=== PATIENT | male | born 1955 | race Caucasian/White ===

== ENCOUNTER 2018-01-14 01:35 | Emergency (ER) | payer SELFPAY ==
--- NOTE | 2018-01-14 01:58 | ER Document Report ---
ED General - General Stated Complaint: POSSIBLE OVERDOSE Time Seen by Provider: 01/14/18 01:40 Notes: Patient is a 62-year-old male presents with complaint of intentional overdose try to kill himself. He said he took approximately 15 tablets of Ambien. He also may be took some Adderall. He also has a bottle of clonazepam and is unclear if he took any of those. He says that he has not. He has been doing with depression for a long time and so they get sick for want to kill himself. He also has been drinking alcohol tonight. Denies any chest pain. He denies any shortness of breath. Patient is somnolent but will answer questions. He has no other complaints at this time. He denies vomiting since the overdose. Past Medical History - Social History Smoking Status: Never Smoker Frequency of alcohol use: None Drug Abuse: None Family History: Reviewed & Not Pertinent Review of Systems - Review of Systems Notes: My Normal Review Basic REVIEW OF SYSTEMS: CONSTITUTIONAL : Denies fever, chills, or sweats. Denies recent illness. CARDIOVASCULAR: Denies chest pain. RESPIRATORY: Denies cough, cold, or chest congestion. Denies shortness of breath, difficulty breathing, or wheezing. GASTROINTESTINAL: Denies abdominal pain. Denies nausea, vomiting, or diarrhea. GENITOURINARY: Denies difficulty urinating, painful urination, burning, frequency, or blood in urine. MUSCULOSKELETAL: Denies neck or back pain or joint pain or swelling. SKIN: Denies rash or skin lesions. NEUROLOGICAL: Somnolent and foggy headed. Denies headache. Denies weakness or paralysis or loss of use of either side. Denies problems with gait or speech. Denies sensory or motor loss. Yoan: Depression and thoughts of suicide. ALL OTHER SYSTEMS REVIEWED AND NEGATIVE. Physical Exam - Vital signs Vitals: Pulse Ox 95 01/14/18 01:43 - Notes Notes: General Appearance: Well nourished, somnolent, cooperative, no acute distress, no obvious discomfort. Vitals: reviewed, See vital signs table. Head: no swelling or tenderness to the head Eyes: PERRL, EOMI, Conjuctiva clear Mouth: No decreasd moisture Throat: No tonsillar inflammation, No airway obstruction, No lymphadenopathy Neck: Supple, no neck tenderness Lungs: No wheezing, No rales, No rhonci, No accessory muscle use, good air exchange bilaterally. Heart: Normal rate, Regular rythm, No murmur, no rub Abdomen: Normal BS, soft, No rigidity, No abdominal tenderness, No guarding, no rebound, no abdominal masses, no organomegaly Extremities: strength 5/5 in all extremities, good pulses in all extremities, no swelling or tenderness in the extremities, no edema. Skin: warm, dry, appropriate color, no rash Neuro: speech is slow, oriented x 3, somnolent, responds appropriately to questions. Renal nerves II through XII are intact. Distal sensation intact. Patient moves all extremities without difficulty. Course - Re-evaluation Re-evalutation: 01/14/18 06:15 Patient is still arousable. Oxygen saturation is 94% on room air. Blood pressure has remained systolically in the 90s with a mean arterial pressure now of 74. He has not required any fluids or supple oxygen. Even though he is arousable he still more somnolent than when I suspect he has his baseline. Once he is no longer somewhat he will be medically stable for psychiatric evaluation. Patient is on IVC papers. Dictation of this chart was performed using voice recognition software; therefore, there may be some unintended grammatical errors. - Vital Signs Vital signs: Temp Pulse Resp BP Pulse Ox 98.0 F 16 96/62 L 93 01/14/18 05:00 01/14/18 06:01 01/14/18 06:01 01/14/18 06:01 - Laboratory Result Diagrams: 01/14/18 02:41 01/14/18 02:41 Laboratory results interpreted by me: 01/14/18 01/14/18 02:41 02:41 RBC 4.21 L Eosinophils % 8.2 H Absolute Eosinophils 0.7 H Sodium 132.7 L Glucose 71 L AST 68 H Salicylates < 1.0 L Acetaminophen < 10 L - EKG Interpretation by Me Additional EKG results interpreted by me: 01/14/18 01:57 EKG is reviewed and interpreted by me. EKG shows sinus rhythm with rate of [address] segment elevation or depression. No ischemic T-wave inversions. DE interval, QRS duration, QTc intervals are within normal range.
[2018-01-14 02:33] LABS: APPEARANCE,URINE CLEAR; BILIRUBIN,URINE NEGATIVE (NEGATIVE); COLOR,URINE STRAW; GLUCOSE, URINE NEGATIVE (NEGATIVE); KETONES,URINE NEGATIVE (NEGATIVE); LEUKOCYTE ESTERASE,URINE NEGATIVE (NEGATIVE); NITRITE,URINE NEGATIVE (NEGATIVE); PROTEIN,URINE NEGATIVE (NEGATIVE); URINE SPECIFIC GRAVITY 1.002; UROBILINOGEN,URINE NEGATIVE mg/dL (<2.0)
[2018-01-14 02:48] LABS: URINE AMPHETAMINES SCREEN UNCONFIRMED POSITIVE; URINE BARBITURATES SCREEN NEGATIVE; URINE BENZODIAZEPINES SCREEN NEGATIVE; URINE COCAINE SCREEN NEGATIVE; URINE MARIJUANA (THC) SCREEN UNCONFIRMED POSITIVE; URINE METHADONE SCREEN NEGATIVE; URINE PHENCYCLIDINE SCREEN NEGATIVE
[2018-01-14 02:52] LABS: ABSOLUTE BASOPHILS # (AUTO) 0.1 10^3/uL (0.0-0.2); ABSOLUTE EOSINOPHILS # (AUTO) 0.7 10^3/uL (0.0-0.6); ABSOLUTE LYMPHOCYTES (AUTO) 2.4 10^3/uL (0.5-4.7); ABSOLUTE MONOCYTES (AUTO) 0.8 10^3/uL (0.1-1.4); ABSOLUTE NEUT (AUTO) 4.3 10^3/uL (1.7-8.2); BASOPHILS % (AUTO) 0.8 % (0-2); EOSINOPHILS % (AUTO) 8.2 % (0-6); HEMATOCRIT 39.7 % (37.9-51.0); HEMOGLOBIN 13.8 g/dL (13.5-17.0); LYMPHOCYTES % (AUTO) 29.4 % (13-45); MEAN CORPUSCULAR HEMOGLOBIN 32.7 pg (27.0-33.4); MEAN CORPUSCULAR HGB CONC 34.8 g/dL (32.0-36.0); MEAN CORPUSCULAR VOLUME 94 fl (80-97); MONOCYTES % (AUTO) 10.1 % (3-13); PLATELET COUNT 167 10^3/uL (150-450); RED BLOOD COUNT 4.21 10^6/uL (4.35-5.55); RED CELL DISTRIBUTION WIDTH 13.8 % (11.5-14.0); SEGMENTED NEUTROPHILS % (AUTO) 51.5 % (42-78); TOTAL CELLS COUNTED % (AUTO) 100 %; WHITE BLOOD COUNT 8.3 10^3/uL (4.0-10.5)
[2018-01-14 03:35] LABS: ALANINE AMINOTRANSFERASE 53 U/L (21-72); ALBUMIN 3.7 g/dL (3.5-5.0); ALCOHOL 120 mg/dL (NONE DETECTED); ALKALINE PHOSPHATASE 91 U/L (38-126); ANION GAP 11 (5-19); ASPARTATE AMINO TRANSFERASE 68 U/L (17-59); BILIRUBIN,DIRECT 0.4 mg/dL (0.0-0.4); BILIRUBIN,TOTAL 0.4 mg/dL (0.2-1.3); BLOOD UREA NITROGEN 12 mg/dL (7-20); CALCIUM 8.5 mg/dL (8.4-10.2); CARBON DIOXIDE 24 mmol/L (22-30); CHLORIDE 98 mmol/L (98-107); GLUCOSE 71 mg/dL (75-110); POTASSIUM 4.4 mmol/L (3.6-5.0); SODIUM 132.7 mmol/L (137-145); TOTAL PROTEIN 6.5 g/dL (6.3-8.2)
[2018-01-14 03:38] LABS: ACETAMINOPHEN < 10 ug/mL (10-30); SALICYLATE < 1.0 mg/dL (2.0-20.0)
--- NOTE | 2018-01-14 09:26 | ER Document Report ---
Doctor's Note Notes: 01/14/18 09:24 Medical rounds: Chart reviewed and patient interviewed briefly. Vital signs are satisfactory, however, blood pressure is borderline low. Patient states he has a history of hypertension and takes lisinopril and metoprolol routinely. He has not been medicated for blood pressure since he arrived in the emergency department, he may possibly have taken some of his blood pressure medicines in addition to the other medications he admits overdosing on. His blood pressure, although that low, is adequate and stable at this time. Laboratory values are satisfactory. Patient denies any somatic complaints. He is alert, oriented, and cooperative. He is medically stable pending psychiatric evaluation and disposition.
--- NOTE | 2018-01-14 10:36 | PSYCHOLOGICAL NOTE ---
Psych Note - Psych Note Psych Note: Reason for Consult: intentional overdose Consent permissions: Mitali, daughter, and Lola, friend, pt presents to ed with c/o possible overdose. per EMS pt took about 5-10 ambian and maybe some adderall, clonazapam but not sure how many. pt has history of SI. pt is depressed since his committed suicide a few years ago. Clinician spoke with patient who disclosed that he arrived to [facility] via EMS because of "sleeping pills." When asked why the patient took so many sleeping pills he stated "because I felt like it." Patient disclosed that he "sometimes " feels like harming himself; he denies any previous suicide attempts. Patient was unable to recall specific details from the previous evening stating that he does not know who called EMS what his trigger was. He confirms he lives alone. Patient has an outpatient mental health provider with Dr. Butcher at [facility] denies any previous inpatient treatment and goes to [facility] for his medications. Patient's daughter disclosed that the patient has been having a very difficult time for the last 5 years. She reports that approximately 5 years ago her mom first attempted suicide and that he "was walking on egg shells after that." She disclosed that 2 years ago (February) her mother successfully committed suicide by using a gun. She reports the patient has a difficult time with therapy stating that he feels they do not understand what is going through. He has attempted both individual and group sessions. She does know that he takes multiple medications but is unsure the exact ones he takes. She disclosed that she is book to her father through text messages at 10 PM in which he provided emotional support to her and said he loved her. She had no idea the patient overdosed until she received a phone call from Lola. She reports Iris received a text message from the patient at approximately midnight and showed it to clinician. Patient's text was a suicide note stating goodbye and I love you to friends and family stating that this would be the best option for him. She reports that she is noticed in the last few months the patient has not been showing any emotion other than anger and pushing everyone away. Patient's friend, Arlet, discloses that the patient was at her place of business and was noted to have asked a coworker how many Ambien it would take to kill himself. She was not notified of this until after the patient left at which point she did receive a text message and became very worried. Behavior health team contacted [facility] to get updated medication list. Patient is prescribed: Ambien 10 mg nightly, Effexor 150 mg daily, amphetamine salts 20 mg tabs (1 and 1/2-2 tabs daily), lisinopril 40 mg daily, Lipitor 40 mg daily, metoprolol 50 mg daily Medication recommendations per [facility]'s contracted psychiatrist Dr. Haley BERNARD, are as follows 1. Please discontinue Ambien and amphetamine salts 2. Please decrease Effexor to 75 mg daily 3. 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 Patient attempted to intentionally overdose. In a few weeks it will be the two-year anniversary of his committing suicide. Patient has been pushing loved ones away for the last few months and text a suicide note to his friend prior to taking the medication.
--- NOTE | 2018-01-14 10:37 | EKG REPORT ---
SEVERITY:- NORMAL ECG - SINUS RHYTHM : Confirmed by: Sher Murrell MD 14-Jan-2018 10:36:26
[2018-01-14] MEDS ORDERED: VENLAFAXINE HCL 75 MG TABLET PO SCH (14:45)
[2018-01-14] MEDS ORDERED: VENLAFAXINE HCL 75 MG TABLET PO ONE (16:30)
[2018-01-14] MEDS: BUSPIRONE HCL 10 MG TABLET PO SCH (18:29)
--- NOTE | 2018-01-15 09:39 | ER Document Report ---
Doctor's Note Notes: 01/15/18 09:38 I saw and evaluated the patient. Vitals stable. Patient has no complaints at this time. No issues over night. Patient denies suicidal or homicidal ideations. No delusions or hallucinations. I will discuss plan of care with behavioral health.
[2018-01-15] MEDS: VENLAFAXINE HCL 75 MG TABLET PO SCH (10:59)
[2018-01-15] MEDS: BUSPIRONE HCL 10 MG TABLET PO SCH ×2 (10:59→18:18)
--- NOTE | 2018-01-16 09:10 | ER Document Report ---
Doctor's Note Notes: 01/16/18 09:10 I have evaluated this patient this am and has no c/o at this time. Feels all of their needs are being met and physical exam is normal. Awaiting dispositon per mental health. 01/16/18 11:[address] Peters at [facility].
[2018-01-16] MEDS: VENLAFAXINE HCL 75 MG TABLET PO SCH (09:15)
[2018-01-16] MEDS: BUSPIRONE HCL 10 MG TABLET PO SCH (09:15)
--- NOTE | 2018-01-16 10:41 | PSYCHOLOGICAL NOTE ---
Psych Note - Psych Note Psych Note: Reason for Consult: intentional overdose Consent permissions: Mitali, daughter, and Lola, friend, pt presents to ed with c/o possible overdose. per EMS pt took about 5-10 ambian and maybe some adderall, clonazapam but not sure how many. pt has history of SI. pt is depressed since his committed suicide a few years ago. Patient was accepted to [facility]; transportation will occur today Medication recommendations per [facility]'s contracted psychiatrist Dr. Haley BERNARD, are as follows 1. Please discontinue Ambien and amphetamine salts 2. Please decrease Effexor to 75 mg daily 3. 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 Patient attempted to intentionally overdose. In a few weeks it will be the two-year anniversary of his committing suicide. Patient has been pushing loved ones away for the last few months and text a suicide note to his friend prior to taking the medication. Dr. Cardenas was consulted on the care and management of this patient ' attending physician is in agreement with recommendations and disposition.
[2018-01-16 14:19] VITALS: BP 128/66
== END 2018-01-16 14:26 ==
LOC: ER 01:35
DX: R45.851 Suicidal ideations (principal); F10.920 Alcohol use, unspecified with intoxication, uncomplicated; F43.10 Post-traumatic stress disorder, unspecified
CPT/HCPCS: 36415; 80053; 80307; 81001; 85025; 93005; 93010; 99285